=== PATIENT | female | born 1930 | race Caucasian/White ===

== ENCOUNTER → 2017-02-25 | Outpatient (CLI) | payer MEDICARE, OTHER ==
--- NOTE | 2017-02-25 14:15 | RAD ---
INDICATION: Short of breath COMPARISON: None. FINDINGS: 2 views of chest obtained. Degenerative changes of the spine. No definite focal airspace consolidation. There are some probable calcified granulomas. IMPRESSION: No focal airspace consolidation or edema.
== END | disposition home or self-care (01) ==
LOC: DXRAD 13:46
PROVIDERS: ATTEND Internal Medicine Pulmonary Disease
DX: R06.02 Shortness of breath (principal)
CPT/HCPCS: 71020

== ENCOUNTER → 2020-04-05 | Outpatient (CLI) | payer MEDICARE, OTHER ==
--- NOTE | 2020-04-05 14:07 | RAD ---
CT Abdomen and Pelvis without contrast History: Constipation Technique: Noncontrast CT imaging was performed of the abdomen and pelvis. Multiplanar images are reviewed. Exposure: One or more of the following individualized dose reduction techniques were utilized for this examination: 1. Automated exposure control 2. Adjustment of the mA and/or kV according to patient size 3. Use of iterative reconstruction technique. Comparison: None Findings: There is 1 cm likely cyst of the inferior right kidney, separate adjacent likely cyst more anteriorly about 1 cm. There is also exophytic 1.5 cm likely cyst of the inferior right kidney. There is a 1.1 cm likely cyst of the posterior, inferior left kidney. There is adjacent focus of hyperdensity of 2 0.7 cm. There is a 0.8 cm likely cyst of the mid left kidney. There is a exophytic focus of hyperdensity projected protruding medially from the superior left kidney 1.3 cm, density measurements 43 Hounsfield units greater than adjacent renal parenchyma. There is no renal calculus or hydronephrosis. There is a 0.4 cm right lower lobe pulmonary nodule image 6 series 2, another small right lower lobe nodule about 0.3 cm image 5. There is 0.3 cm left lower lobe nodule image 9. Accurate evaluation of abdominal visceral organs is limited without intravenous contrast. There is no obvious focal abnormality of the spleen, liver, or pancreas. There are splenic granulomas. There has been cholecystectomy. There is no adrenal nodularity. Accurate evaluation of bowel is limited without oral contrast. There is no significant free air, free fluid, small bowel dilatation. There is [id number] sigmoid diverticulosis. There is variable retained stool greater of the left colon. There is at least 10 cm segment of concentric wall thickening involving the right aspect of the transverse colon, no adjacent inflammatory change, smaller caliber of the colon at this location. There is more advanced degenerative disc disease at L2-3 and L4-5, to a lesser degree at other lumbar levels. There is multilevel lumbar facet degenerative change. There is probable at least moderate spinal stenosis at L4-5, to a lesser degree at L3-4. There is [id number] neural foramina compromise at L4-5 bilaterally. Impression: 1. There is at least 10 cm length segment of wall thickening of the right aspect of the transverse colon. Underlying mass is not excluded for which colon screening is advised. Segmental colitis would be another consideration although there is no adjacent inflammatory change. There is variable retained stool in the colon. There is sigmoid diverticulosis. 2. There are bilateral renal cysts. There is exophytic hyperdense lesion of the superior left kidney which may be complex or hemorrhagic cyst although nonemergent ultrasound evaluation is recommended to exclude solid lesion. 3. There are some small pulmonary nodules of the visualized lung bases. If there are increased risk factors for neoplasm, dedicated chest CT could be indicated. Regarding the visualized nodules, no additional follow-up is needed if low risk factors for neoplasm, optional 12 month follow-up if increased risk factors for neoplasm as per revised Fleischner guidelines. Electronically signed by: Angel Beebe MD (04/05/2020 2:04 PM) [facility] CENTERJose Luis
== END | disposition home or self-care (01) ==
LOC: CT 12:55
PROVIDERS: ATTEND Family Medicine
DX: K57.30 Diverticulosis of large intestine without perforation or abscess without bleeding (principal); N28.1 Cyst of kidney, acquired; K75.3 Granulomatous hepatitis, not elsewhere classified; K50.10 Crohn's disease of large intestine without complications; R91.8 Other nonspecific abnormal finding of lung field; K59.00 Constipation, unspecified; M51.36 Other intervertebral disc degeneration, lumbar region; M48.061 Spinal stenosis, lumbar region without neurogenic claudication
CPT/HCPCS: 74176